=== PATIENT | female | born 1980 | race Two or more races ===

== ENCOUNTER 2020-02-11 08:35 | Day surgery (SDC) | payer BC ==
[2020-02-11] VITALS (9 sets, daily range): BP systolic 99–108; BP diastolic 62–74
[~2020-02-11] VITALS: Ht 162.6 cm; Wt 63.0 kg
[2020-02-11] MEDS ORDERED: LEXAPRO10 MG ORAL (09:07)
[2020-02-11] MEDS ORDERED: VITAMIN D310 MCG ORAL (09:07)
[2020-02-11] MEDS ORDERED: FAMOTIDINE20 MG ORAL (09:07)
[2020-02-11] MEDS ORDERED: Lidocaine 1% MPF 10mg/ml 5ml ONE (10:30)
[2020-02-11] MEDS ORDERED: LR 1000ml ONE (10:30)
--- NOTE | 2020-02-11 10:37 | Pre-Procedure Note/Attestation ---
Pre-Procedure Note/Attestation Complete Prior to Procedure Planned Procedure: not applicable Procedure Narrative: EGD Indications for Procedure Pre-Operative Diagnosis: OSMAR Pain Attestation I attest that I discussed the nature of the procedure; its benefits; risks and complications; and alternatives (and the risks and benefits of such alternatives ), prior to the procedure, with the patient (or the patient's legal congressional representative). I attest that, if there was a reasonable possibility of needing a blood transfusion, the patient (or the patient's legal congressional representative) was given the [facility] standardized written summary, pursuant to the [place] Blood Safety Act ([place] Health and Safety Code # 1645, as amended). I attest that I re-evaluated the patient just prior to the surgery and that there has been no change in the patient's H&P, except as documented below: Miriam Harmon MD Feb 11, 2020 10:37
--- NOTE | 2020-02-11 10:38 | Short Stay Surgery H&P ---
History of Present Illness History of Present Illness Chief Complaint see H&P HPI Shikha Velasco is a 39 year old female who was admitted on for Dysphagia Patient History Allergies: Coded Allergies: AMOXICILLIN (Verified Allergy, Unknown, 02/11/20) CEPHALEXIN (Verified Allergy, Unknown, 02/11/20) DOXYCYCLINE (Verified Allergy, Unknown, 02/11/20) PENICILLINS (Verified Allergy, Unknown, 02/11/20) Medication History Scheduled Escitalopram Oxalate* (Lexapro*), 10 MG ORAL DAILY, (Reported) Famotidine* (Pepcid 20mg tablet*), 40 MG ORAL DAILY, (Reported) Vitamin D (Vitamin D3), 400 MCG ORAL DAILY, (Reported) Physical Exam Vital Signs Last Vital Signs Date Time Temp Pulse Resp B/P (MAP) Pulse Ox O2 Delivery O2 Flow Rate FiO2 02/11/20 09:22 96.9 77 18 101/69 99 Room Air Labs Laboratory Tests Test 02/11/20 08:45 Urine HCG, Qualitative Negative (NEGATIVE) Plan Attestation Are the patient's medical conditions optimized for surgery? Miriam Harmon MD Feb 11, 2020 10:38
--- NOTE | 2020-02-11 10:56 | General Progress Note ---
Assessment/Plan Assessment/Plan: Assessment - cholelithiasis - fatty food intolerance - RUQ TTP - suspect biliary colic - GERD with some features of dysphagia Recommendations - will proceed with EGD today - r/o other pathology which can explain abd pain - If EGD negative, will refer for surgical eval of cholecystectomy Subjective Allergies: Coded Allergies: AMOXICILLIN (Verified Allergy, Unknown, 02/11/20) CEPHALEXIN (Verified Allergy, Unknown, 02/11/20) DOXYCYCLINE (Verified Allergy, Unknown, 02/11/20) PENICILLINS (Verified Allergy, Unknown, 02/11/20) Subjective patient seen in GI lab pre procedure d/w patient re new finding has had recent diffuse abd pain, aron after PO some fatty food intolerance went to an ER recently U/S --> gallstones asking for advise re this matter Objective Last 24 Hour Vital Signs Date Time Temp Pulse Resp B/P (MAP) Pulse Ox O2 Delivery O2 Flow Rate FiO2 02/11/20 09:22 96.9 77 18 101/69 99 Room Air 02/11/20 09:18 Room Air Laboratory Tests 02/11/20 08:45: Urine HCG, Qualitative Negative Height (Feet): 5 Height (Inches): 4.00 Weight (Pounds): 139 Objective WDWN WW NCAT supple Abd soft (+) RUQ TTP with inspiration no edema Miriam Harmon MD Feb 11, 2020 10:56
--- NOTE | 2020-02-11 10:58 | Endoscopy Procedure Note ---
Endoscopy Procedure Note General Indication for Procedure: dysphagia, GERD Operative Findings/Diagnosis: 2 cm HH Specimen: yes Pt Tolerated Procedure Well: Yes Estimated Blood Loss: none Anesthesia Anesthesiologist: GRICEL Anesthesia: moderate sedation Medications Medication Given: see anesthesia record Inserted Devices Implant(s) used?: No GI Core Measures 50 yrs or older w/o bx or poly: Not Applicable 10yrs. F/U recommended: Not Applicable Miriam Harmon MD Feb 11, 2020 10:58
--- NOTE | 2020-02-11 10:59 | Brief Operative Note ---
Immediate Post Operative Note Operative Note Chief Complaint: dysphagia, OSMAR Pre-op Diagnosis: OSMAR Pain Procedure: EGD, Bx Surgeon: keesha Anesthesiologist: GRICEL Anesthesia: MAC Specimen: yes Complications: none Condition: stable Fluids: per anesthesia Estimated Blood Loss: none Implant(s) used?: No Miriam Harmon MD Feb 11, 2020 10:59
--- NOTE | 2020-02-11 11:10 | Immediate Post-Op Evaluation ---
Immediate Post-Op Evalulation Immediate Post-Op Evalulation Procedure: EGD Date of Evaluation: Feb 11, 2020 Time of Evaluation: 11:09 IV Fluids: 600 Blood Pressure Systolic: 103 Blood Pressure Diastolic: 70 Pulse Rate: 71 Respiratory Rate: 14 O2 Sat by Pulse Oximetry: 98 Temperature (Fahrenheit): 97.1 Nausea: No Vomiting: No Complications none Patient Status: awake, reacts, patent Hydration Status: adequate Drug: none Eden Guevara CRNA Feb 11, 2020 11:10
--- NOTE | 2020-02-11 11:11 | Anethesia Preoperative Eval ---
Anesthesia Pre-op PMH/ROS General Date of Evaluation: Feb 11, 2020 Time of Evaluation: 10:20 Anesthesiologist: gavi ASA Score: ASA 2 Mallampati Score Class I : Soft palate, uvula, fauces, pillars visible Class II: Soft palate, uvula, fauces visible Class III: Soft palate, base of uvula visible Class IV: Only hard plate visible Mallampati Classification: Class I Surgeon: Latia Diagnosis: ABD pain Surgical Procedure: EGD Anesthesia History: none Allergies: Coded Allergies: AMOXICILLIN (Verified Allergy, Unknown, 02/11/20) CEPHALEXIN (Verified Allergy, Unknown, 02/11/20) DOXYCYCLINE (Verified Allergy, Unknown, 02/11/20) PENICILLINS (Verified Allergy, Unknown, 02/11/20) Medications: see eMAR Patient NPO?: Yes NPO Date: Feb 11, 2020 NPO Time: 00:01 Past Medical History Cardiovascular: Denies: HTN, CAD, NC, valve dz, arrhythmia, other Pulmonary: Denies: asthma, COPD, MARIO, other Gastrointestinal/Genitourinary: Reports: GERD Neurologic/Psychiatric: Reports: depression/anxiety; Denies: dementia, CVA, TIA, other Endocrine: Denies: DM, hypothyroidism, steroids, other HEENT: Denies: cataract (L), cataract (R), glaucoma, [place] (L), [place] (R), other Hematology/Immune: Denies: anemia, DVT, bleeding disorder, other Musculoskeletal/Integumentary: Denies: OA, RA, DJD, DDD, edema, other Anesthesia Pre-op Phys. Exam Physician Exam Last Vital Signs Date Time Temp Pulse Resp B/P (MAP) Pulse Ox O2 Delivery O2 Flow Rate FiO2 02/11/20 09:22 96.9 77 18 101/69 99 Room Air Constitutional: NAD Neurologic: CN 2-12 intact Cardiovascular: RRR Respiratory: CTA Gastrointestinal: S/NT/ND Airway Exam Mallampati Classification 2 Mallampati Score: Class II MO: full ROM: full Dentures: no upper, no lower Anesthesia Pre-op A/P Labs Urine Test Test 02/11/20 08:45 Urine HCG, Qualitative Negative (NEGATIVE) Studies Pre-op Studies: EKG - SR Risk Assessment & Plan Assessment: covid neg Plan: mac Status Change Before Surgery: No Pre-Antibiotics Drug: none Tarrillion,Eden Osorio MAINTENANCE LEADER Feb 11, 2020 11:11
--- NOTE | 2020-02-11 12:02 | 48 Hour Post Anesthesia Eval ---
Post Anesthesia Evaluation Procedure: EGD Date of Evaluation: Feb 11, 2020 Time of Evaluation: 12:02 Blood Pressure Systolic: 101 0: 74 Pulse Rate: 70 Respiratory Rate: 15 O2 Sat by Pulse Oximetry: 98 Airway: patent Nausea: No Vomiting: No Hydration Status: adequate Follow-up Care/Observations: na Post-Anesthesia Complications: none Follow-up care needed: N/A Eden Guevara CRNA Feb 11, 2020 12:02
--- NOTE | 2020-02-13 03:45 | Operative Note - Dictated ---
DATE OF OPERATION: 02/11/2020 GASTROENTEROLOGY PROCEDURE REPORT PROCEDURE: upper gastrointestinal endoscopy with biopsy. SURGEON: Miriam Harmon MD. ANESTHESIA: Please see the separate anesthesiologist notes for details by the certified nurse Rheologist. PRE-ENDOSCOPIC DIAGNOSES: Symptoms of gastroesophageal reflux as well as abdominal pain. POST-ENDOSCOPIC DIAGNOSES: 1. A 2 cm hiatal hernia. 2. No ulcers or polyps were seen. DESCRIPTION OF PROCEDURE: The procedure, its risks, indications, and possible complications were explained to the patient and informed consent was obtained. The patient was then sedated in the left lateral decubitus position and a diagnostic upper endoscope was introduced through oropharynx and advanced to the duodenum without difficulty. The endoscope was then gradually withdrawn and mucosa examined carefully hiatal hernia. There were no other abnormalities such as ulcers or polyps identified and mid esophagus were sent to pathology for review. The endoscope was removed. The patient was sent to recovery in good condition. COMPLICATIONS: None. RECOMMENDATIONS: 1. Follow up biopsy results. 2. Outpatient followup. Miriam Harmon M.D. DR: BRENDAN JOB#: [id number] CC: Miriam Harmon M.D.; Fax#: [phone]
== END 2020-02-11 12:00 | disposition home or self-care (01) ==
LOC: GAS 08:35
DX: R10.9 Unspecified abdominal pain (principal); K44.9 Diaphragmatic hernia without obstruction or gangrene; K29.80 Duodenitis without bleeding; K29.50 Unspecified chronic gastritis without bleeding; K21.0 Gastro-esophageal reflux disease with esophagitis; Z88.0 Allergy status to penicillin; Z88.8 Allergy status to other drugs, medicaments and biological substances; F32.9 Major depressive disorder, single episode, unspecified; F41.9 Anxiety disorder, unspecified
CPT/HCPCS: 43239; 81025; 94003; J2704; J7120; U0002; 94150